=== PATIENT | male | born 1960 | race Caucasian/White ===

== ENCOUNTER 2017-10-17 02:13 | Emergency (ER) | payer OTHER ==
[2017-10-17] MEDS ORDERED: CLOPIDOGREL 75 MG TABLET ONE (02:37)
[2017-10-17] MEDS ORDERED: MORPHINE 4 MG/ML SYR ONE (02:38)
[2017-10-17] MEDS ORDERED: NITROGLYCERIN 0.4 MG/TAB SL ONE (02:38)
[2017-10-17] MEDS ORDERED: ONDANSETRON 4 MG/2 ML VIAL ONE (02:38)
[2017-10-17] MEDS ORDERED: NA CHLORIDE 0.9% 1,000 ML ONE (02:38)
[2017-10-17] MEDS ORDERED: TENECTEPLASE 50 MG/10 ML VIAL IV ONE (02:42)
[2017-10-17] MEDS ORDERED: HEPARIN/D5W 25,000 UNIT/500 ML BAG IV ONE (02:42)
[2017-10-17] MEDS ORDERED: HEPARIN 5000 UNIT/ML 1 ML VIAL ONE (02:44)
--- NOTE | 2017-10-17 02:50 | ER ---
Nurse's Notes [facility] Name: Sameer Jarvis Age: 56 yrs Sex: Male : 1960 Arrival Date: 10/17/2017 Time: 02:18 Bed 4 Private MD: Diagnosis: Acute M.I. ( STEMI ) Presentation: 10/17 02:25 Presenting complaint: Patient states: "I been having chest pain and a sensation like ao indigestion" Patient states that pain started about 0030. Patient denies NVD, but states that he is been feeling SOB. Transition of care: patient was not received from another setting of care. Onset of symptoms was October 17, 2017 at 00:30. Initial Sepsis Screen: Does the patient meet any 2 criteria? No. Patient's initial sepsis screen is negative. Does the patient have a suspected source of infection? No. Patient's initial sepsis screen is negative. Care prior to arrival: Medication(s) given: ASA, 325 mg, x 2. 02:25 Method Of Arrival: Ambulatory ao 02:25 Acuity: JEREMY 2 ao Triage Assessment: 02:39 General: Appears in no apparent distress. uncomfortable, Behavior is cooperative, ao agitated, anxious. Pain: Complains of pain in chest. Cardiovascular: Patient's skin is warm and dry. Historical: - Allergies: 02:33 No Known Allergies; ao - Home Meds: 02:33 Metoprolol Tartrate Oral [Active]; TobraDex Opht [Active]; Testosterone Injections ao [Active]; Acyclovir Oral [Active]; venlafaxine oral oral [Active]; losartan 25 mg oral tab 1 tab 2 times per day [Active]; venlafaxine 150 mg oral tr24 1 tab once daily [Active]; Cyclobenzaprine Oral [Active]; Clonazepam Oral [Active]; - PMHx: 02:33 Hypertension; Anxiety; Low Testosterone; ao - PSHx: 02:33 Neck; Appendectomy; Elbow; Hands; ao - Immunization history:: Adult Immunizations up to date. - Social history:: Smoking status: . Screenin:39 Abuse screen: Denies threats or abuse. Denies injuries from another. Nutritional ao screening: No deficits noted. Tuberculosis screening: No symptoms or risk factors identified. Fall Risk None identified. Assessment: 02:39 General: Appears in no apparent distress. uncomfortable, Behavior is cooperative, ao anxious. Pain: Pain does not radiate. Pain began 2 hours ago. Neuro: Level of Consciousness is awake, alert, obeys commands, Oriented to person, place, time, situation, Appropriate for age Lead Burner Helper are equal bilaterally Moves all extremities. Full function Speech is normal, Facial symmetry appears normal, Pupils are PERRLA. Cardiovascular: Patient's skin is warm and dry. Cardiovascular: Reports chest pain, shortness of breath. Respiratory: Airway is patent Respiratory effort is even, unlabored, Respiratory pattern is regular, symmetrical. GI: Abdomen is non-distended. : No signs and/or symptoms were reported regarding the genitourinary system. EENT: No signs and/or symptoms were reported regarding the EENT system. Derm: Skin Skin is pink, warm \\T\\ dry. normal, Skin temperature is warm. Musculoskeletal: No signs and/or symptoms reported regarding the musculoskeletal system. 03:41 Reassessment: Patient appears in no apparent distress at this time. pt left A\\T\\OX4 even ak1 and unlabored. Vital Signs: 02:15 BP 164 / 107; Pulse 83; Resp 16; Pulse Ox 99% ; Weight 85.59 kg (R); Height 5 ft. 9 in. ao (175.26 cm); Pain 8/10; 02:38 Temp 99.1; ao 03:43 ak1 02:15 Body Mass Index 27.87 (85.59 kg, 175.26 cm) ao 03:43 see paper documentation for vital signs ak1 ED Course: 02:18 Patient arrived in ED. al2 02:26 Triage completed. ao 02:26 Arm band placed on right wrist. Patient placed in an exam room, Patient notified of ao wait time. 02:32 Jason Armstrong MD is Attending Physician. pkl 02:32 Inserted saline lock: 18 gauge in right antecubital area, using aseptic technique. ao ,using aseptic technique. Per RASHMI Crowe Blood collected. Inserted saline lock: 20 gauge in left antecubital area, using aseptic technique. ,using aseptic technique. Per RASHMI Crowe. 02:39 Patient has correct armband on for positive identification. hospital monitor on. Pulse ao ox on. NIBP on. 02:41 Patient maintains SpO2 saturation greater than 95% on room air. ao 02:44 XRAY Chest (1 view) In Process Unspecified. EDMS 03:26 Amrita Jin, RN is Primary Nurse. ak1 03:26 Notified ED physician of a critical lab result(s). cpk 1181, mb of 12.6, trop 0.03. fc 03:43 Patient transferred, IV remains in place. ak1 03:44 No provider procedures requiring assistance completed. ak1 Administered Medications: 02:35 Drug: PlaVIX 300 mg Route: PO; ao 02:40 Drug: morphine 2 mg Route: IVP; Site: right forearm; fc 02:40 Drug: Zofran 4 mg Route: IVP; Site: right forearm; fc 02:40 Drug: Nitroglycerin 0.4 mg Route: Sublingual; fc 02:45 Drug: Heparin ([place]-Bolus with thrombolytic) - HEParin 60 units/kg {Co-Signature: fc ao (Fela Jean Baptiste RN).} Route: IVP; Site: left antecubital; 02:45 Drug: Heparin ([place] Drip) 12 units/kg/hr - (HEParin 34484 units, D5W 500 ml) ao {Co-Signature: fc (Fela Jean Baptiste RN).} Route: IV; Rate: calculated rate; Site: left antecubital; 02:53 Drug: Tenecteplase 45 mg {Co-Signature: ak1 (Amrita Jin RN).} Route: IV; Rate: 9 ml; fc Site: right forearm; 03:24 Drug: morphine 2 mg Route: IVP; Site: right forearm; fc Outcome: 02:50 ER care complete, transfer ordered by . pk 03:[address] [facility], Transfer form completed. X-rays sent ak1 w/ patient. Note: report given to life flight 03:44 Condition: stable 03:44 Instructed on the need for transfer. 03:45 Patient left the ED. ak1 Signatures: Dispatcher [employer] EDMT Jason Armstrong MD MD pkl Chretien, Felicia, RN RN Amrita Jin RN RN ak1 Carlos Hernandez RN Raya Carranza RN, RN ak1 Corrections: (The following items were deleted from the chart) 02:36 02:25 Transition of care: patient was not received from another setting of care. ao ao 02:36 02:25 Care prior to arrival: None. ao ao
--- NOTE | 2017-10-17 02:51 | EDPHYS ---
Physician Documentation [facility] Name: Sameer Jarvis Age: 56 yrs Sex: Male : 1960 Arrival Date: 10/17/2017 Time: 02:18 Bed 4 Private MD: ED Physician Jason Armstrong HPI: 10/17 02:35 This 56 yrs old Male presents to ER via Ambulatory with complaints of Chest pkl Pain. 02:35 The patient or guardian reports chest pain that is located primarily in the substernal pkl area. Onset: just prior to arrival, 2 hour(s) ago. The pain radiates to neck. Associated signs and symptoms: Pertinent positives: diaphoresis, shortness of breath. The chest pain is described as causing indigestion. Historical: - Allergies: 02:33 No Known Allergies; ao - Home Meds: 02:33 Metoprolol Tartrate Oral [Active]; TobraDex Opht [Active]; Testosterone Injections ao [Active]; Acyclovir Oral [Active]; venlafaxine oral oral [Active]; losartan 25 mg oral tab 1 tab 2 times per day [Active]; venlafaxine 150 mg oral tr24 1 tab once daily [Active]; Cyclobenzaprine Oral [Active]; Clonazepam Oral [Active]; - PMHx: 02:33 Hypertension; Anxiety; Low Testosterone; ao - PSHx: 02:33 Neck; Appendectomy; Elbow; Hands; ao - Immunization history:: Adult Immunizations up to date. - Social history:: Smoking status: . ROS: 02:35 Eyes: Negative for injury, pain, redness, and discharge, ENT: Negative for injury, pkl pain, and discharge, Neck: Negative for injury, pain, and swelling. 02:35 Cardiovascular: Positive for chest pain. 02:35 Respiratory: Positive for shortness of breath. 02:35 Abdomen/GI: Negative for abdominal pain, nausea, vomiting, and diarrhea. 02:35 Back: Negative for acute changes. 02:35 : Negative for urinary symptoms. 02:35 MS/extremity: Negative for acute changes. 02:35 Skin: Positive for diaphoresis. 02:35 Neuro: Negative for altered mental status. Exam: 02:35 Head/Face: Normocephalic, atraumatic. Eyes: Pupils equal round and reactive to light, pkl extra-ocular motions intact. Lids and lashes normal. Conjunctiva and sclera are non-icteric and not injected. Cornea within normal limits. Periorbital areas with no swelling, redness, or edema. ENT: Nares patent. No nasal discharge, no septal abnormalities noted. Tympanic membranes are normal and external auditory canals are clear. Oropharynx with no redness, swelling, or masses, exudates, or evidence of obstruction, uvula midline. Mucous membranes moist. Neck: Trachea midline, no thyromegaly or masses palpated, and no cervical lymphadenopathy. Supple, full range of motion without nuchal rigidity, or vertebral point tenderness. No Meningismus. Chest/axilla: Normal chest wall appearance and motion. Nontender with no deformity. No lesions are appreciated. Cardiovascular: Regular rate and rhythm with a normal S1 and S2. No gallops, murmurs, or rubs. Normal PMI, no JVD. No pulse deficits. Respiratory: Lungs have equal breath sounds bilaterally, clear to auscultation and percussion. No rales, rhonchi or wheezes noted. No increased work of breathing, no retractions or nasal flaring. Abdomen/GI: Soft, non-tender, with normal bowel sounds. No distension or tympany. No guarding or rebound. No evidence of tenderness throughout. Back: No spinal tenderness. No costovertebral tenderness. Full range of motion. Skin: Warm, dry with normal turgor. Normal color with no rashes, no lesions, and no evidence of cellulitis. MS/ Extremity: Pulses equal, no cyanosis. Neurovascular intact. Full, normal range of motion. Neuro: Awake and alert, GCS 15, oriented to person, place, time, and situation. Cranial nerves II-XII grossly intact. Motor strength 5/5 in all extremities. Sensory grossly intact. Cerebellar exam normal. Normal gait. Vital Signs: 02:15 BP 164 / 107; Pulse 83; Resp 16; Pulse Ox 99% ; Weight 85.59 kg (R); Height 5 ft. 9 in. ao (175.26 cm); Pain 8/10; 02:38 Temp 99.1; ao 03:43 ak1 02:15 Body Mass Index 27.87 (85.59 kg, 175.26 cm) ao 03:43 see paper documentation for vital signs ak1 MDM: 02:32 Patient medically screened. pkl 02:42 Data reviewed: vital signs, nurses notes, lab test result(s), EKG, radiologic studies. pkl 10/17 02:34 Order name: Basic Metabolic Panel; Complete Time: 05:23 pkl 10/17 02:34 Order name: BNP; Complete Time: 05:23 pkl 10/17 02:34 Order name: CBC with Diff; Complete Time: 05:23 pkl 10/17 02:34 Order name: Ckmb; Complete Time: 05:23 pkl 10/17 02:34 Order name: CPK; Complete Time: 05:23 pkl 10/17 02:34 Order name: LFT's; Complete Time: 05:23 pkl 10/17 02:34 Order name: Magnesium; Complete Time: 05:23 pkl 10/17 02:34 Order name: PT-INR; Complete Time: 05:23 pkl 10/17 02:34 Order name: Ptt, Activated; Complete Time: 05:23 pkl 10/17 02:34 Order name: Troponin (emerg Dept Use Only); Complete Time: 05:23 pkl 10/17 02:34 Order name: XRAY Chest (1 view) pkl 10/17 02:34 Order name: EKG; Complete Time: 02:35 pkl 10/17 02:34 Order name: Cardiac monitoring; Complete Time: 02:56 pkl 10/17 02:34 Order name: EKG - Nurse/Tech; Complete Time: 02:56 pkl 10/17 02:34 Order name: IV Saline Lock; Complete Time: 02:56 pkl 10/17 02:34 Order name: Labs collected and sent; Complete Time: 02:56 pkl 10/17 02:34 Order name: O2 Per Protocol; Complete Time: 02:57 pkl 10/17 02:34 Order name: O2 Sat Monitoring; Complete Time: 02:57 pkl Administered Medications: 02:35 Drug: PlaVIX 300 mg Route: PO; ao 02:40 Drug: morphine 2 mg Route: IVP; Site: right forearm; fc 02:40 Drug: Zofran 4 mg Route: IVP; Site: right forearm; fc 02:40 Drug: Nitroglycerin 0.4 mg Route: Sublingual; fc 02:45 Drug: Heparin ([place]-Bolus with thrombolytic) - HEParin 60 units/kg {Co-Signature: fc ao (Fela Jean Baptiste RN).} Route: IVP; Site: left antecubital; 02:45 Drug: Heparin ([place] Drip) 12 units/kg/hr - (HEParin 30186 units, D5W 500 ml) ao {Co-Signature: fc (Fela Jean Baptiste RN).} Route: IV; Rate: calculated rate; Site: left antecubital; 02:53 Drug: Tenecteplase 45 mg {Co-Signature: ak1 (Amrita Jin RN).} Route: IV; Rate: 9 ml; fc Site: right forearm; 03:24 Drug: morphine 2 mg Route: IVP; Site: right forearm; fc Disposition: 02:48 Critical Care:. pkl Disposition: 10/17/17 02:50 Transfer ordered to [facility]. Diagnosis is Acute M.I. ( STEMI ). - Reason for transfer: Higher level of care. - Accepting physician is Dr. Chaidez. - Condition is Stable. - Problem is new. - Symptoms have improved. Signatures: Dispatcher [employer] Jason Aguilar MD MD pkl Chretien, Felicia, RN RN Amrita Jin RN RN ak1 Carlos Hernandez RN RN ao Fela Jean Baptiste RN Amrita Jin RN ak1 Corrections: (The following items were deleted from the chart) 03:45 02:50 10/17/2017 02:50 Transfer ordered to [facility]. ak1 Diagnosis is Acute M.I. ( STEMI ). Reason for transfer: Higher level of care. Accepting physician is Dr. Chaidez. Condition is Stable. Problem is new. Symptoms have improved. pkl
[2017-10-17 02:58] LABS: Absolute Lymphocytes (CBC) 1.3 K/uL (0.7-4.9); Absolute Monocytes 0.6 K/uL (0.1-1.3); Absolute Neutrophil 3.5 K/uL (1.8-8.0); Basophils % 0.6 % (0-1.3); Eosinophils % 4.5 % (0-4.4); Hematocrit 49.7 % (39.6-49.0); Lymphocytes % 22.7 % (15.3-44.8); MCH 31.6 pg (27.0-35.0); MCV 96.3 fL (80-100); MPV 8.2 fL (7.6-11.3); Monocytes % 10.2 % (3.3-12.3); RBC Red Blood Cell Count 5.16 M/uL (4.33-5.43)
[2017-10-17 03:09] LABS: Protime INR 0.98
[2017-10-17 03:14] LABS: Potassium 3.7 mEq/L (3.6-5.0)
[2017-10-17 03:24] LABS: Albumin 3.9 g/dL (3.2-5.5); Bilirubin Direct 0.1 mg/dL (0-0.2); Bilirubin Total 0.6 mg/dL (0.3-1.2); Magnesium 2.1 mg/dL (1.8-2.5); Protein, Total 7.1 g/dL (6.0-8.3)
[2017-10-17 03:27] LABS: CKMB Creatine Kinase MB 12.6 ng/ml (0.3-4.0)
--- NOTE | 2017-10-17 05:47 | EKG ---
Test Date: 2017-10-17 Test Time: 02:21:01 Fuel Cell Builder: MARIA C MEASUREMENT RESULTS: Intervals: Rate: 78 SC: 152 QRSD: 78 QT: 348 QTc: 396 [place]: P: 79 SC: 152 QRS: 82 T: -73 INTERPRETIVE STATEMENTS: Normal sinus rhythm Minimal voltage criteria for LVH, may be normal variant LVH with secondary repolarization changes Abnormal ECG No previous ECG available for comparison Electronically Signed On 10-17-17 05:46:46 CDT by Roly Olivera
--- NOTE | 2017-10-17 10:14 | EKG ---
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
--- NOTE | 2017-10-17 13:35 | RAD REPORT ---
EXAM DESCRIPTION: RAD - Chest Single View - 10/17/2017 2:44 am CLINICAL HISTORY: Chest pain. COMPARISON: None. FINDINGS: Portable technique limits examination quality. The lungs are mildly underinflated resulting in vascular crowding. No focal infiltrate seen. The hear t is normal in size. No displaced fractures.Cervical hardware plate noted. IMPRESSION: Underinflated lungs.
== END 2017-10-17 03:45 | disposition short-term general hospital (02) ==
LOC: ER 02:13
DX: I21.3 ST elevation (STEMI) myocardial infarction of unspecified site (principal); I10 Essential (primary) hypertension; F41.9 Anxiety disorder, unspecified
CPT/HCPCS: 36415; 71045; 80048; 80076; 82550; 82553; 83735; 83880; 84484; 85025; 85610; 85730; 92977; 93005; 99285; J1644; J2405; J3101; J7030